=== PATIENT | female | born 1995 | race Hispanic/Latino ===

== ENCOUNTER 2021-02-12 13:49 | Outpatient (CLI) | payer OTHER ==
[2021-02-13 14:17] LABS: SARS-CoV-2 PCR by NAA Not Detected (NotDetected)
== END 2021-02-12 13:50 | disposition home or self-care (01) ==
LOC: CSHLAB 13:49
PROVIDERS: ATTEND Obstetrics & Gynecology
DX: Z20.822 Contact with and (suspected) exposure to COVID-19 (principal)
CPT/HCPCS: U0003; U0005

== ENCOUNTER 2021-02-14 18:00 | Inpatient (IN) | payer BC, MEDICAID ==
[2021-02-14] MEDS ORDERED: Ondansetron PF 4 MG/2 ML Vial IVP PRN (19:13)
[2021-02-14] MEDS ORDERED: Butorphanol Tartrate 1 MG/ML VIAL SLOW IVP PRN (19:13)
[2021-02-14] MEDS ORDERED: hydrALAZINE 20 MG/ML VIAL SLOW IVP PRN (19:13)
[2021-02-14] MEDS ORDERED: Lidocaine 1% (PF) 30 ML VIAL SC PRN (19:13)
[2021-02-14] MEDS ORDERED: Acetaminophen 500 MG TAB PO PRN (19:13)
[2021-02-14] MEDS ORDERED: Promethazine HCl 25 MG/ML VIAL IM PRN (19:13)
[2021-02-14] MEDS ORDERED: Penicillin G Potassium 5 MILL.UNITS in Sodium Chloride 0.9% 100 ML IVPB SCH (19:15)
[2021-02-14] MEDS ORDERED: Penicillin G 2.5 MILL.units 2.5 MILL.UNITS in Premix Bag 1 BAG IVPB SCH (19:15)
[2021-02-14] MEDS ORDERED: NS w/ Oxytocin 30 units 500 ML IVPB SCH (19:15)
[2021-02-14] MEDS ORDERED: NS w/ Oxytocin 30 units 500 ML IV SCH (19:15)
[2021-02-14] MEDS ORDERED: Misoprostol 100 MCG TAB VAG SCH (19:15)
[2021-02-22] MEDS ORDERED: Bupivacaine 0.25% HCL 30 ML VIAL ONE (07:00)
[2021-02-22] MEDS ORDERED: Bupivacaine PF 0.5% 30 ML VIAL ONE (07:00)
[2021-02-22] MEDS ORDERED: Lidocaine 2% MPF 10 ML AMP (For Epidural Use) ONE (07:00)
[2021-02-22] MEDS ORDERED: Methylergonovine 0.2 MG/ML VIAL IM PRN (20:11)
[2021-02-22] MEDS ORDERED: Carboprost 250 MCG/ML AMP IM PRN (20:11)
[2021-02-22] MEDS ORDERED: Lidocaine 1% (PF) 30 ML VIAL SC PRN (20:11)
[2021-02-22] MEDS ORDERED: Misoprostol 200 MCG TAB PR PRN (20:11)
[2021-02-22] MEDS ORDERED: HYDROcodone/Acetaminophen 5/325 mg Tablet PO PRN ×2 (20:11)
[2021-02-22] MEDS ORDERED: Ibuprofen 800 MG TAB PO PRN (20:11)
[2021-02-22] MEDS ORDERED: Diphenoxylate HCl/Atropine Tablet PO PRN (20:11)
[2021-02-22] MEDS ORDERED: NS w/ Oxytocin 30 units 500 ML IV SCH ×2 (20:15)
[2021-02-22 20:36] VITALS: BMI 32.3
[2021-02-22] MEDS ORDERED: Misoprostol 100 MCG TAB VAG SCH (21:00)
[2021-02-22] MEDS ORDERED: Penicillin G Potassium 5 MILL.UNITS in Sodium Chloride 0.9% 100 ML IVPB SCH (22:45)
[2021-02-22 23:34] LABS: SARS-CoV-2 NAA Rapid Test Not Detected (NotDetected)
[2021-02-23 00:05] LABS: Hemoglobin 12.1 g/dL (12.0-15.5); Mean Corpuscular HGB CONC 32.7 g/dL (32.0-36.0); Mean Corpuscular Hemoglobin 29.7 pg (27.0-33.0); Mean Corpuscular Volume 90.9 fl (81.6-98.3); Mean Platelet Volume 12.6 fl (7.4-10.4); Platelet Count 171 10x3/uL (150-450); RBC Distribution Width 13.4 % (11.5-14.5); Red Blood Cell (RBC) Count 4.07 10x6/uL (3.90-5.03); White Blood Cell (WBC) Count 13.1 10x3/uL (3.5-10.5)
[2021-02-23 00:40] LABS: Hep B Surf Ag Non-Reactive S/CO (NonReactive); Syphilis Antibody Nonreactive (Nonreactive); Syphilis Antibody Index 0.13 S/CO (<1.00 Non-Reactive)
[2021-02-23] MEDS: Penicillin G 2.5 MILL.units 2.5 MILL.UNITS in Premix Bag 1 BAG IVPB SCH ×4 (02:55→18:49)
[2021-02-23] MEDS ORDERED: Fentanyl 2 mcg/Bup 0.1% Cadd 100 ML ONE ×2 (03:45→09:48)
[2021-02-23] MEDS ORDERED: Lactated Ringer's 500 ML IV PRN (05:16)
[2021-02-23] MEDS ORDERED: Hydrocerin (Eucerin) Cream 120 gm Jar TOP PRN (05:16)
[2021-02-23] MEDS ORDERED: Ondansetron PF 4 MG/2 ML Vial IVP PRN (05:16)
[2021-02-23] MEDS ORDERED: diphenhydrAMINE 50 MG/ML VIAL IVP PRN (05:16)
[2021-02-23] MEDS ORDERED: Acetaminophen 325 MG TAB PO PRN (05:16)
[2021-02-23] MEDS ORDERED: ePHEDrine Sulfate 50 MG/10 ML VIAL SLOW IVP PRN (05:16)
[2021-02-23] MEDS ORDERED: Promethazine HCl 25 MG/ML VIAL IM PRN (05:16)
[2021-02-23] MEDS ORDERED: Naloxone HCl 0.4 mg/ml Vial IVP PRN ×2 (05:16)
[2021-02-23] MEDS ORDERED: Fentanyl 2 mcg/Bupivacaine 0.1% Cassette 100 ML EPIDURAL SCH (05:30)
[2021-02-23] MEDS ORDERED: Communication Order-Pharmacy FS SCH (05:30)
[2021-02-23] MEDS ORDERED: SODIUM CHLORIDE 0.9% EPIDURAL SCH (10:00)
[2021-02-23] MEDS ORDERED: DISCONTINUE ALL PREVIOUS NARCOTICS FS SCH (10:00)
[2021-02-23] MEDS ORDERED: FENTANYL CITRATE EPIDURAL SCH (10:00)
[2021-02-23] MEDS ORDERED: BUPIVACAINE 0.5% EPIDURAL SCH (10:00)
[2021-02-23] MEDS ORDERED: Misoprostol 200 MCG TAB ONE (12:28)
[2021-02-23] MEDS ORDERED: Boostrix 0.5 ML (Tdap) VIAL IM ONE (12:53)
[2021-02-23] MEDS ORDERED: Benzocaine-Menthol 82.5 ML CAN TOP PRN (12:53)
[2021-02-23] MEDS ORDERED: Lanolin Ointment 7 GM TUBE TOP PRN (12:53)
[2021-02-23] MEDS ORDERED: Milk Of Magnesia 30 ML UDCUP PO PRN (12:53)
[2021-02-23] MEDS ORDERED: Preparation H Ointment 28 GM TUBE PR PRN (12:53)
[2021-02-23] MEDS ORDERED: Bisacodyl 10 MG SUPP PR PRN (12:53)
[2021-02-23] MEDS ORDERED: hydrALAZINE 20 MG/ML VIAL SLOW IVP PRN (12:53)
[2021-02-23] MEDS: Ferrous Sulfate 325 MG TAB PO SCH (18:48)
[2021-02-23] MEDS: Ibuprofen 800 MG TAB PO SCH ×2 (18:48→21:25)
[2021-02-23] MEDS ORDERED: traMADol HCl 50 MG TAB PO PRN (19:19)
[2021-02-23] MEDS: Docusate Calcium (SURFAK) 240 MG CAP PO SCH (21:25)
[2021-02-24] MEDS: Ibuprofen 800 MG TAB PO SCH ×3 (05:33→21:17)
[2021-02-24] MEDS: Ferrous Sulfate 325 MG TAB PO SCH ×2 (09:08→17:31)
[2021-02-24] MEDS: Prenatal Vitamin 1 TAB PO SCH (09:09)
[2021-02-24] MEDS: Docusate Calcium (SURFAK) 240 MG CAP PO SCH ×2 (09:09→21:17)
[2021-02-25] MEDS: Ibuprofen 800 MG TAB PO SCH (05:31)
[2021-02-25 08:24] VITALS: BP 107/57; TEMP 97.9
[2021-02-25] MEDS: Ferrous Sulfate 325 MG TAB PO SCH (09:14)
[2021-02-25] MEDS: Docusate Calcium (SURFAK) 240 MG CAP PO SCH (09:15)
[2021-02-25] MEDS: Prenatal Vitamin 1 TAB PO SCH (09:15)
== END 2021-02-25 11:15 | disposition home or self-care (01) | DRG 807 ==
LOC: CSHLD 18:49 → UNDOADMIN 18:49 → CSHLD 02-22 20:14 → CSHPP 02-23 15:35
PROVIDERS: ADMIT Obstetrics & Gynecology; ATTEND Obstetrics & Gynecology
PROC: 10E0XZZ Delivery of Products of Conception, External Approach (ICD-10-PCS; principal; 2021-02-23)
DX: O24.429 Gestational diabetes mellitus in childbirth, unspecified control (principal); Z37.0 Single live birth; Z3A.41 41 weeks gestation of pregnancy; Z20.822 Contact with and (suspected) exposure to COVID-19
CPT/HCPCS: 36415; 36416; 51702; 85027; 86780; 86850; 86900; 86901; 87340; J2405; J2540; J2590; J3010; J3490; S0020; U0002

== ENCOUNTER 2021-02-14 20:36 | Day surgery (SDC) | payer OTHER, BC ==
[2021-02-14] MEDS ORDERED: hydrALAZINE 20 MG/ML VIAL SLOW IVP PRN (21:02)
== END 2021-02-14 20:50 | disposition home or self-care (01) ==
LOC: CSHLD/OP 20:36
PROVIDERS: ATTEND Obstetrics & Gynecology
DX: O48.0 Post-term pregnancy (principal); O24.410 Gestational diabetes mellitus in pregnancy, diet controlled; O99.820 Streptococcus B carrier state complicating pregnancy; Z3A.40 40 weeks gestation of pregnancy
CPT/HCPCS: 99282

== ENCOUNTER 2021-02-27 13:17 | Emergency (ER) | payer BC, MEDICAID ==
[2021-02-27 14:53] LABS: Bilirubin Neg (Negative); Blood, Urine Negative (Negative); Clarity Clear (Clear); Glucose, Urine (Dipstick) Normal (Negative); Ketone, Urine Negative (Negative); Leukocyte Negative (Negative); Nitrite Negative (Negative); Protein, Urine (Dipstick) Negative (Neg-Trace); Specific Gravity, Urine 1.005 (1.002-1.036); Urobilinogen Normal mg/dL (Less than 2)
== END 2021-02-27 16:02 | disposition home or self-care (01) ==
LOC: CSHERS 13:17
DX: O90.89 Other complications of the puerperium, not elsewhere classified (principal)
CPT/HCPCS: 71045; 81003